=== PATIENT | male | born 1990 | race American Indian/Alaskan Native ===

== ENCOUNTER 2018-06-30 22:19 | Emergency (ER) | payer OTHER ==
--- NOTE | 2018-07-01 00:11 | XRay Report ---
PROCEDURE: LUMBAR SPINE, 2 VIEWS TECHNIQUE: Lumbar spine radiographs, frontal and lateral views. CPT 96658 HISTORY: Back pain COMPARISONS: None . FINDINGS: Alignment: Normal . Vertebral body heights/Disk spaces: Normal . Fracture(s): None . Facets: Normal . Bone mineralization: Normal . IMPRESSION: Normal Examination . This document is electronically signed by Jose Ramon Cotton MD., July 01 2018 12:09:08 AM ET
[2018-07-01 00:56] VITALS: BP 133/73
[2018-07-01 01:18] LABS: Bilirubin,Urine NEG (Negative); Blood,Urine NEG (Negative); Color,Urine Yellow (Yellow); Mucus,Urine FEW /HPF; Protein,Urine <15 mg/dL mg/dL (Negative); WBC,Urine < 1.0 /HPF (0.0-6.0)
--- NOTE | 2018-07-01 01:34 | Emergency Department Report ---
ED General Adult HPI - General Chief complaint: Urogenital-Male Stated complaint: FALL AT WORK/CHECK FOR UTI Time Seen by Provider: 07/01/18 00:40 Source: patient, RN notes reviewed, old records reviewed Mode of arrival: Ambulatory Limitations: No Limitations - History of Present Illness Initial comments: This is a 28-year-old gentleman. The patient is not known to this provider previously. The patient presents to the emergency room with 2 complaints. History of complaint is medical clearance to return to work. He reports a mechanical slip and fall at work a few days ago. He reports that his employer instruct him to "get cleared to come back to work." Apparently, patient's employer does not have Worker's Compensation, or any current arrangement with the health care organization for medical clearance. Patient denies extremity weakness, numbness. He fell onto his lower back. He is not really having significant pain. He denies headache, neck pain, chest pain, abdominal pain, shortness of breath. He has a secondary complaint of "urinary tract infection." He denies dysuria. He denies hesitancy. He denies discharge. He has a sensation of suprapubic fullness. He denies testicular pain. He reports that he had a urinary tract infection a few months ago," this feels similar." He reports these symptoms have been going on for approximately 2 weeks. -: Gradual Location: back Severity scale (0 -10): 5 Quality: aching Consistency: intermittent, now resolved Improves with: other Worsens with: other - Related Data Previous Rx's Medication Instructions Recorded Last Taken Type Sulfamethoxazole/Trimethoprim 1 each PO BID #14 tablet 01/16/18 Unknown Rx [Bactrim DS TAB] Azithromycin [Zithromax TAB] 1,000 mg PO ONCE #2 tablet 04/19/18 Unknown Rx Ketorolac [Toradol] 10 mg PO Q6H PRN #15 tablet 04/19/18 Unknown Rx methOCARBAMOL [Robaxin] 750 mg PO Q8H PRN #21 tablet 04/19/18 Unknown Rx Acetaminophen [Acetaminophen TAB] 650 mg PO Q6HR PRN #20 tablet 07/01/18 Unknown Rx Ibuprofen [Motrin] 600 mg PO Q8H PRN #30 tablet 07/01/18 Unknown Rx Allergies Allergy/AdvReac Type Severity Reaction Status Date / Time No Known Allergies Allergy Verified 04/18/18 21:46 ED Review of Systems ROS: Stated complaint: FALL AT WORK/CHECK FOR UTI Other details as noted in HPI Constitutional: denies: fever Eyes: denies: eye discharge ENT: denies: epistaxis Respiratory: denies: cough Cardiovascular: denies: chest pain Gastrointestinal: denies: nausea, vomiting Genitourinary: denies: urgency, dysuria, hematuria, discharge, testicular pain, testicular mass Musculoskeletal: back pain Skin: denies: lesions Neurological: denies: weakness ED Past Medical Hx - Past Medical History Previous Medical History?: No - Surgical History Past Surgical History?: No - Social History Smoking Status: Never Smoker Substance Use Type: None - Medications Home Medications: Home Medications Medication Instructions Recorded Confirmed Last Taken Type Sulfamethoxazole/Trimethoprim 1 each PO BID #14 tablet 01/16/18 Unknown Rx [Bactrim DS TAB] Azithromycin [Zithromax TAB] 1,000 mg PO ONCE #2 tablet 04/19/18 Unknown Rx Ketorolac [Toradol] 10 mg PO Q6H PRN #15 tablet 04/19/18 Unknown Rx methOCARBAMOL [Robaxin] 750 mg PO Q8H PRN #21 tablet 04/19/18 Unknown Rx Acetaminophen [Acetaminophen TAB] 650 mg PO Q6HR PRN #20 tablet 07/01/18 Unknown Rx Ibuprofen [Motrin] 600 mg PO Q8H PRN #30 tablet 07/01/18 Unknown Rx ED Physical Exam - General Limitations: No Limitations General appearance: alert, in no apparent distress - Head Head exam: Present: atraumatic, normocephalic - Eye Eye exam: Present: normal appearance, EOMI. Absent: nystagmus - ENT ENT exam: Present: normal exam, normal orophraynx, mucous membranes moist, normal external ear exam - Neck Neck exam: Present: normal inspection, full ROM. Absent: tenderness, meningismus - Respiratory Respiratory exam: Present: normal lung sounds bilaterally. Absent: respiratory distress - Cardiovascular Cardiovascular Exam: Present: regular rate, normal rhythm, normal heart sounds. Absent: bradycardia, tachycardia, irregular rhythm, systolic murmur, diastolic murmur, rubs, gallop - GI/Abdominal GI/Abdominal exam: Present: soft. Absent: distended, tenderness, guarding, rebound, rigid - Rectal Rectal exam: Present: deferred - exam: Present: normal inspection, other (chaperoned by nurse Mariya Patel). Absent: testicular tenderness External exam: Present: normal external exam, other (there is no testicular tenderness. There is normal testicular lie bilaterally. There is normal cremasteric reflex bilaterally.) - Extremities Exam Extremities exam: Present: normal inspection, full ROM. Absent: pedal edema, joint swelling - Back Exam Back exam: Present: normal inspection, full ROM. Absent: tenderness, CVA tenderness (R), paraspinal tenderness, vertebral tenderness - Neurological Exam Neurological exam: Present: alert, oriented X3, CN II-XII intact, normal gait, other (Extraocular movements intact. Tongue midline. No facial droop. Facial sensation intact to light touch in the V1, V2, V3 distribution bilaterally. 5 and 5 strength in 4 extremities.. Sensation is intact to light touch in 4 extremities.). Absent: motor sensory deficit - Psychiatric Psychiatric exam: Present: normal affect, normal mood - Skin Skin exam: Present: warm, dry, intact, normal color. Absent: rash ED Course Vital Signs 06/30/18 07/01/18 23:28 00:53 Temperature 98 F 98.4 F Pulse Rate 73 65 Respiratory 16 18 Rate Blood Pressure 138/75 Blood Pressure 133/73 [Left] O2 Sat by Pulse 100 100 Oximetry ED Medical Decision Making - Lab Data Vital Signs 06/30/18 07/01/18 23:28 00:53 Temperature 98 F 98.4 F Pulse Rate 73 65 Respiratory 16 18 Rate Blood Pressure 138/75 Blood Pressure 133/73 [Left] O2 Sat by Pulse 100 100 Oximetry Lab Results 06/30/18 Range/Units Unknown Urine Color Yellow (Yellow) Urine Turbidity Clear (Clear) Urine pH 6.0 (5.0-7.0) Ur Specific [place] 1.017 (1.003-1.030) Urine Protein <15 mg/dl (Negative) mg/dL Urine Glucose (UA) Neg (Negative) mg/dL Urine Ketones Neg (Negative) mg/dL Urine Blood Neg (Negative) Urine Nitrite Neg (Negative) Urine Bilirubin Neg (Negative) Urine Urobilinogen 2.0 (<2.0) mg/dL Ur Leukocyte Esterase Neg (Negative) Urine WBC (Auto) < 1.0 (0.0-6.0) /HPF Urine RBC (Auto) 1.0 (0.0-6.0) /HPF U Epithel Cells (Auto) < 1.0 (0-13.0) /HPF Urine Mucus Few /HPF - Radiology Data Radiology results: report reviewed, image reviewed X-ray of the lumbar spine is negative for acute disease. - Medical Decision Making Differential diagnosis, including but not limited to: Medical clearance, mechanical fall, urinary tract infection, STI Assessment and plan: 28-year-old gentleman with 2 complaints. Complaint #1, medical clearance to return to work. The patient does not appear to have any acute neurologic impairment. He walks with a steady gait. He has no lower back tenderness. He has full range of motion. plain films ordered of the lumbar spine prior to my evaluation, and they appear to be unremarkable. Patient at this point time does not appear to have an immediate medical contrai ndication to returning to work. Complaint #2, lower abdominal discomfort. No lower abdominal tenderness. Normal genital exam. Urinalysis is not consistent with UTI. Culture sent. Did not suspect STI at this point in time based off of the history and physical examination as well as the available laboratory studies. Patient can follow-up with the primary care doctor, cultures were sent. discussed safe sex practices with the patient. Critical care attestation.: If time is entered above; I have spent that time in minutes in the direct care of this critically ill patient, excluding procedure time. ED Disposition Clinical Impression: General medical exam Disposition: DC-01 TO HOME OR SELFCARE Is pt being admited?: No Does the pt Need Aspirin: No Condition: Good Additional Instructions: The patient may return to work related activities without limitation. Patient may take acetaminophen, [id number], 650 mg, every 4-6 hours, alternating with ibuprofen, 600 mg with food, every 6 hours, as needed for pain. Cultures were sent today, and results will be available in the next 3-5 days. Please have a primary care doctor contact the medical records department to obtain culture results. Urine test today was not consistent or suggestive of urinary tract infection. Therefore, please make certain to follow-up with a primary care doctor. Make certain to practice safe sex practices, including barrier/condom protection. Please return to the emergency room right away with new, worse or different symptoms. Referrals: [facility] [Provider Group] - 3-5 Days
== END 2018-07-01 01:45 | disposition home or self-care (01) ==
LOC: ED 22:19
DX: M54.9 Dorsalgia, unspecified (principal)
CPT/HCPCS: 72100; 81001; 87086; 87591; 99283

== ENCOUNTER 2018-09-30 19:22 | Emergency (ER) | payer SELFPAY ==
--- NOTE | 2018-09-30 19:59 | Event Note ---
Date: 09/30/18 28 Y.O with penile discharge, white for the past 1 week, having unprotected sex, high suspicion for sti.
[2018-09-30 20:01] VITALS: BP 127/68
[2018-09-30 20:17] LABS: Bilirubin,Urine NEG (Negative); Blood,Urine NEG (Negative); Color,Urine Yellow (Yellow); Mucus,Urine FEW /HPF; Protein,Urine <15 mg/dL mg/dL (Negative)
[2018-09-30] MEDS ORDERED: ZITHROMAX PO ONE (20:52)
[2018-09-30] MEDS ORDERED: XYLOCAINE 1% MPF 5 mL INFILTRATI ONE (20:52)
[2018-09-30] MEDS ORDERED: ROCEPHIN IM ONE (20:52)
--- NOTE | 2018-09-30 21:03 | Emergency Department Report ---
ED Male HPI - General Chief complaint: Urogenital-Male Stated complaint: GENITAL DISCOMFORT/DISCHARGE Time Seen by Provider: 09/30/18 20:14 Source: patient Mode of arrival: Ambulatory Limitations: No Limitations - History of Present Illness Initial comments: 28 Y.O with penile discharge, white for the past 1 week, having unprotected sex, high suspicion for sti. MD Complaint: penile discharge, dysuria Onset/Timin Location: penis Radiation: none Severity: moderate Severity scale (0 -10): 5 Quality: burning Consistency: intermittent Improves with: none Worsens with: urination discharge - Related Data Sexually active: Yes Previous Rx's Medication Instructions Recorded Last Taken Type Sulfamethoxazole/Trimethoprim 1 each PO BID #14 tablet 01/16/18 Unknown Rx [Bactrim DS TAB] Azithromycin [Zithromax TAB] 1,000 mg PO ONCE #2 tablet 04/19/18 Unknown Rx Ketorolac [Toradol] 10 mg PO Q6H PRN #15 tablet 04/19/18 Unknown Rx methOCARBAMOL [Robaxin] 750 mg PO Q8H PRN #21 tablet 04/19/18 Unknown Rx Acetaminophen [Acetaminophen TAB] 650 mg PO Q6HR PRN #20 tablet 07/01/18 Unknown Rx Ibuprofen [Motrin] 600 mg PO Q8H PRN #30 tablet 07/01/18 Unknown Rx Doxycycline Monohydrate 100 mg PO BID 10 Days #20 capsule 09/30/18 Unknown Rx Allergies Allergy/AdvReac Type Severity Reaction Status Date / Time No Known Allergies Allergy Verified 04/18/18 21:46 ED Review of Systems ROS: Stated complaint: GENITAL DISCOMFORT/DISCHARGE Other details as noted in HPI Constitutional: denies: chills, fever Eyes: denies: eye pain, eye discharge, vision change ENT: denies: ear pain, throat pain Respiratory: denies: cough, shortness of breath, wheezing Cardiovascular: denies: chest pain, palpitations Endocrine: no symptoms reported Gastrointestinal: denies: abdominal pain, nausea, diarrhea Genitourinary: urgency, dysuria, frequency, discharge. denies: hematuria, testicular pain, testicular mass Musculoskeletal: denies: back pain, joint swelling, arthralgia Skin: denies: rash, lesions Neurological: denies: headache, weakness, paresthesias Psychiatric: denies: anxiety, depression Hematological/Lymphatic: as per HPI ED Past Medical Hx - Past Medical History Previous Medical History?: No - Surgical History Past Surgical History?: No - Social History Smoking Status: Current Every Day Smoker Substance Use Type: Marijuana - Medications Home Medications: Home Medications Medication Instructions Recorded Confirmed Last Taken Type Sulfamethoxazole/Trimethoprim 1 each PO BID #14 tablet 01/16/18 Unknown Rx [Bactrim DS TAB] Azithromycin [Zithromax TAB] 1,000 mg PO ONCE #2 tablet 04/19/18 Unknown Rx Ketorolac [Toradol] 10 mg PO Q6H PRN #15 tablet 04/19/18 Unknown Rx methOCARBAMOL [Robaxin] 750 mg PO Q8H PRN #21 tablet 04/19/18 Unknown Rx Acetaminophen [Acetaminophen TAB] 650 mg PO Q6HR PRN #20 tablet 07/01/18 Unknown Rx Ibuprofen [Motrin] 600 mg PO Q8H PRN #30 tablet 07/01/18 Unknown Rx Doxycycline Monohydrate 100 mg PO BID 10 Days #20 capsule 09/30/18 Unknown Rx ED Physical Exam - General Limitations: No Limitations General appearance: alert, in no apparent distress - Head Head exam: Present: atraumatic, normocephalic - Eye Eye exam: Present: normal appearance, PERRL, EOMI Pupils: Present: normal accommodation - ENT ENT exam: Present: mucous membranes moist - Neck Neck exam: Present: normal inspection - Respiratory Respiratory exam: Present: normal lung sounds bilaterally. Absent: respiratory distress, wheezes, stridor, chest wall tenderness - Cardiovascular Cardiovascular Exam: Present: regular rate, normal rhythm. Absent: systolic murmur, diastolic murmur, rubs, gallop - GI/Abdominal GI/Abdominal exam: Present: soft, normal bowel sounds. Absent: distended, tenderness, bruit, hernia - Rectal Rectal exam: Present: deferred - exam: Present: other (exam deferred per patient ) - Extremities Exam Extremities exam: Present: normal inspection - Back Exam Back exam: Present: normal inspection - Neurological Exam Neurological exam: Present: alert, oriented X3, CN II-XII intact, normal gait, reflexes normal. Absent: motor sensory deficit - Psychiatric Psychiatric exam: Present: normal affect, normal mood - Skin Skin exam: Present: warm, dry, intact, normal color. Absent: rash ED Course Vital Signs 09/30/18 19:59 Temperature 98.7 F Pulse Rate 78 Respiratory 18 Rate Blood Pressure 127/68 O2 Sat by Pulse 99 Oximetry ED Medical Decision Making - Lab Data Labs 09/30/18 19:50 Urine Color Yellow Urine Turbidity Clear Urine pH 7.0 Ur Specific [place] 1.018 Urine Protein <15 mg/dl Urine Glucose (UA) Neg Urine Ketones Neg Urine Blood Neg Urine Nitrite Neg Urine Bilirubin Neg Urine Urobilinogen 2.0 Ur Leukocyte Esterase Tr Urine WBC (Auto) 8.0 H Urine RBC (Auto) 1.0 Urine Mucus Few - Medical Decision Making this is a STD pt tx'd for same will follow up with health department for HIV and HSV screening, pt verbalized agreement and understanding of same. Critical care attestation.: If time is entered above; I have spent that time in minutes in the direct care of this critically ill patient, excluding procedure time. ED Disposition Clinical Impression: STI (sexually transmitted infection) Disposition: DC-01 TO HOME OR SELFCARE Is pt being admited?: No Does the pt Need Aspirin: No Condition: Stable Instructions: Sexually Transmitted Diseases (ED) Additional Instructions: follow up with health department for HIV and HSV screening Prescriptions: Doxycycline Monohydrate 100 mg PO BID 10 Days #20 capsule Referrals: SUJATA ROSSI MD [Primary Care Provider] - 3-5 Days Forms: Work/School Release Form(ED) Time of Disposition: 21:04
== END 2018-09-30 21:36 | disposition home or self-care (01) ==
LOC: ED 19:22
DX: A64 Unspecified sexually transmitted disease (principal); F17.200 Nicotine dependence, unspecified, uncomplicated; F12.90 Cannabis use, unspecified, uncomplicated; Z79.899 Other long term (current) drug therapy
CPT/HCPCS: 81001; 87591; 96372; 99283; J0696

== ENCOUNTER 2020-06-02 08:54 | Emergency (ER) | payer SELFPAY ==
[2020-06-02] MEDS ORDERED: ONDANSETRON 4 MG ODT TAB PO ONE (10:03)
--- NOTE | 2020-06-02 10:06 | Emergency Department Report ---
HPI - General Chief Complaint: Nausea/Vomiting/Diarrhea Time Seen by Provider: 06/02/20 09:58 - HPI HPI: This is a 30-year-old -[place] male who presents to the emergency department with complaint of nausea, vomiting, diarrhea and abdominal cramping that has been going on over the past 3 weeks. The patient does not have diarrhea every day but says that when he does have it "it is bad." Patient only had one episode of vomiting last night but has been having the nausea over the past 3 weeks. Currently, at the time of my examination, the patient complains of some mild nausea and he has been having an associated mild generalized headache. He denies any visual change, slurred speech, numbness or paresthesias, weakness, fever. No recent travel or sick contacts at home. He has tried some ibuprofen and Pepto-Bismol on different days with some transient relief. He does not have a primary care physician. He denies any past medical history. No known aggravating or alleviating factors. ED Past Medical Hx - Past Medical History Previous Medical History?: No - Surgical History Past Surgical History?: No - Social History Smoking Status: Never Smoker Substance Use Type: None - Medications Home Medications: Home Medications Medication Instructions Recorded Confirmed Last Taken Type Sulfamethoxazole/Trimethoprim 1 each PO BID #14 tablet 01/16/18 Unknown Rx [Bactrim DS TAB] Azithromycin [Zithromax TAB] 1,000 mg PO ONCE #2 tablet 04/19/18 Unknown Rx Ketorolac [Toradol] 10 mg PO Q6H PRN #15 tablet 04/19/18 Unknown Rx methOCARBAMOL [Robaxin] 750 mg PO Q8H PRN #21 tablet 04/19/18 Unknown Rx Acetaminophen [Acetaminophen TAB] 650 mg PO Q6HR PRN #20 tablet 07/01/18 Unknown Rx Ibuprofen [Motrin] 600 mg PO Q8H PRN #30 tablet 07/01/18 Unknown Rx Doxycycline Monohydrate 100 mg PO BID 10 Days #20 capsule 09/30/18 Unknown Rx Ondansetron [Zofran Odt] 4 mg PO Q8HR PRN #14 tab.rapdis 06/02/20 Unknown Rx ED Review of Systems ROS: Stated complaint: NAUSEA/VOMITING Other details as noted in HPI Comment: All other systems reviewed and negative Constitutional: denies: chills, fever Eyes: denies: eye pain, vision change ENT: denies: ear pain, throat pain Respiratory: denies: cough, shortness of breath Cardiovascular: denies: chest pain, palpitations Gastrointestinal: abdominal pain, nausea, vomiting, diarrhea Genitourinary: dysuria. denies: discharge Musculoskeletal: denies: back pain, arthralgia Skin: denies: rash, lesions Neurological: denies: headache, weakness Physical Exam - Physical Exam Vital Signs: Vital Signs 06/02/20 09:02 Temperature 98.3 F Pulse Rate 55 L Respiratory 16 Rate Blood Pressure 132/84 O2 Sat by Pulse 100 Oximetry Physical Exam: GENERAL: The patient is well-developed well-nourished. HENT: Normocephalic. Atraumatic. Patient has moist mucous membranes. EYES: Extraocular motions are intact. NECK: Supple. Trachea is midline. CHEST/LUNGS: Clear to auscultation. There is no respiratory distress noted. HEART/CARDIOVASCULAR: Regular. There is no tachycardia. There is no murmur. ABDOMEN: Abdomen is soft, nontender. Patient has normal bowel sounds. SKIN: Skin is warm and dry. NEURO: The patient is awake, alert, and oriented. The patient is cooperative. The patient has no focal neurologic deficits. Normal speech. Cranial nerves II through XII grossly intact. MUSCULOSKELETAL: There is no tenderness or deformity. There is no limitation range of motion. ED Course Vital Signs 06/02/20 09:02 Temperature 98.3 F Pulse Rate 55 L Respiratory 16 Rate Blood Pressure 132/84 O2 Sat by Pulse 100 Oximetry ED Medical Decision Making - Lab Data Result diagrams: 06/02/20 10:30 06/02/20 10:30 Lab Results 06/02/20 06/02/20 06/02/20 Range/Units 10:30 10:30 Unknown WBC 4.4 L (4.5-11.0) K/mm3 RBC 5.42 H (3.65-5.03) M/mm3 Hgb 16.1 H (11.8-15.2) gm/dl Hct 47.1 H (35.5-45.6) % MCV 87 (84-94) fl MCH 30 (28-32) pg MCHC 34 (32-34) % RDW 13.5 (13.2-15.2) % Plt Count 141 (140-440) K/mm3 Lymph % (Auto) 30.4 (13.4-35.0) % Rock % (Auto) 9.6 H (0.0-7.3) % Eos % (Auto) 1.8 (0.0-4.3) % Baso % (Auto) 0.7 (0.0-1.8) % Lymph # (Auto) 1.3 (1.2-5.4) K/mm3 [place] # (Auto) 0.4 (0.0-0.8) K/mm3 Eos # (Auto) 0.1 (0.0-0.4) K/mm3 Baso # (Auto) 0.0 (0.0-0.1) K/mm3 Seg Neutrophils % 57.5 (40.0-70.0) % Seg Neutrophils # 2.5 (1.8-7.7) K/mm3 Sodium 141 (137-145) mmol/L Potassium 4.5 (3.6-5.0) mmol/L Chloride 101.4 (98-107) mmol/L Carbon Dioxide 30 (22-30) mmol/L Anion Gap 14 mmol/L BUN 9 (9-20) mg/dL Creatinine 0.9 (0.8-1.3) mg/dL Estimated GFR > 60 ml/min BUN/Creatinine Ratio 10 % Glucose 92 (75-100) mg/dL Calcium 9.7 (8.4-10.2) mg/dL Total Bilirubin 1.10 (0.1-1.2) mg/dL AST 15 (5-40) units/L ALT 10 (7-56) units/L Alkaline Phosphatase 74 (35-129) units/L Total Protein 7.5 (6.3-8.2) g/dL Albumin 4.8 (3.9-5) g/dL Albumin/Globulin Ratio 1.8 % Urine Color Yellow (Yellow) Urine Turbidity Clear (Clear) Urine pH 6.0 (5.0-7.0) Ur Specific [place] 1.014 (1.003-1.030) Urine Protein <15 mg/dl (Negative) mg/dL Urine Glucose (UA) Neg (Negative) mg/dL Urine Ketones Neg (Negative) mg/dL Urine Blood Neg (Negative) Urine Nitrite Neg (Negative) Urine Bilirubin Neg (Negative) Urine Urobilinogen < 2.0 (<2.0) mg/dL Ur Leukocyte Esterase Sm (Negative) Urine WBC (Auto) 13.0 H (0.0-6.0) /HPF Urine RBC (Auto) 1.0 (0.0-6.0) /HPF - Medical Decision Making This patient presents to the emergency department with a complaint of a 3-week history of some nausea, vomiting and diarrhea. At the time of my examination the patient just says that he has some nausea. Labs have been unremarkable including CBC, metabolic panel and urinalysis. His vital signs have been reassuring throughout his ED course including being afebrile. The patient is able to pass an oral challenge after he was given a Zofran ODT. He appears safe for discharge home at this time. He has been given a prescription for Zofran ODT and outpatient referrals for primary care. We discussed increasing his oral rehydration. He will return to the emergency department with any worsening of his symptoms or with any acute distress. Critical Care Time: No Critical care attestation.: If time is entered above; I have spent that time in minutes in the direct care of this critically ill patient, excluding procedure time. ED Disposition Clinical Impression: Abdominal cramping Nausea & vomiting Qualifiers: Vomiting type: unspecified Vomiting Intractability: unspecified Qualified Code(s): R11.2 - Nausea with vomiting, unspecified Diarrhea Qualifiers: Diarrhea type: unspecified type Qualified Code(s): R19.7 - Diarrhea, unspecified Disposition: DC-01 TO HOME OR SELFCARE Is pt being admited?: No Condition: Stable Instructions: Diarrhea, Adult, Nausea and Vomiting, Adult Additional Instructions: Please increase your oral rehydration. Please follow-up with a primary care physician in the next few days. I have given you a referral for a local primary care physician and a primary care clinic. Return to the emergency department with any worsening of your symptoms, new or concerning symptoms not addressed during this current emergency department visit, or with any acute distress. Prescriptions: Ondansetron [Zofran Odt] 4 mg PO Q8HR PRN #14 tab.rapdis PRN Reason: Nausea Referrals: NEIDA MENDOZA MD [Primary Care Provider] - 3-5 Days [facility] [Provider Group] - 3-5 Days SARA JOHNSON MD [Staff Physician] - 3-5 Days Time of Disposition: 11:57
[2020-06-02 11:15] LABS: Basophils % (Auto) 0.7 % (0.0-1.8); Eosinophils # (Auto) 0.1 K/mm3 (0.0-0.4); Eosinophils % (Auto) 1.8 % (0.0-4.3); Hematocrit 47.1 % (35.5-45.6); Hemoglobin 16.1 gm/dl (11.8-15.2); Lymphocytes # (Auto) 1.3 K/mm3 (1.2-5.4); Lymphocytes % (Auto) 30.4 % (13.4-35.0); Mean Corpuscular HGB Conc 34 % (32-34); Mean Corpuscular Volume 87 fl (84-94); Monocytes # (Auto) 0.4 K/mm3 (0.0-0.8); Monocytes % (Auto) 9.6 % (0.0-7.3); Red Blood Count 5.42 M/mm3 (3.65-5.03); Red Cell Distribution Width 13.5 % (13.2-15.2)
[2020-06-02 11:22] LABS: Platelet Count 141 K/mm3 (140-440)
[2020-06-02 11:27] LABS: Bilirubin,Urine NEG (Negative); Blood,Urine NEG (Negative); Color,Urine Yellow (Yellow); Protein,Urine <15 mg/dL mg/dL (Negative); Urobilinogen,Urine < 2.0 mg/dL (<2.0)
[2020-06-02 11:38] LABS: Alanine Aminotransferase 10 units/L (7-56); Albumin 4.8 g/dL (3.9-5); BUN/Creatinine Ratio 10; Blood Urea Nitrogen 9 mg/dL (9-20); Calcium 9.7 mg/dL (8.4-10.2); Hemolysis Index 8
[2020-06-02 12:12] VITALS: BP 123/57
== END 2020-06-02 12:14 | disposition home or self-care (01) ==
LOC: ED 08:54
DX: R11.2 Nausea with vomiting, unspecified (principal); R19.7 Diarrhea, unspecified; R10.9 Unspecified abdominal pain; Z79.899 Other long term (current) drug therapy
CPT/HCPCS: 36415; 80053; 81001; 85025; 87086; Q0162

== ENCOUNTER 2021-10-11 16:16 | Emergency (ER) | payer SELFPAY ==
[2021-10-11 17:33] VITALS: BP 139/93
[2021-10-11 18:05] LABS: Basophils % (Auto) 0.9 % (0.0-1.8); Eosinophils # (Auto) 0.1 K/mm3 (0.0-0.4); Eosinophils % (Auto) 1.4 % (0.0-4.3); Hematocrit 43.2 % (35.5-45.6); Hemoglobin 14.8 gm/dl (11.8-15.2); Lymphocytes # (Auto) 1.7 K/mm3 (1.2-5.4); Lymphocytes % (Auto) 33.4 % (13.4-35.0); Mean Corpuscular HGB Conc 34 % (32-34); Mean Corpuscular Volume 86 fl (84-94); Monocytes # (Auto) 0.6 K/mm3 (0.0-0.8); Monocytes % (Auto) 12.5 % (0.0-7.3); Platelet Count 155 K/mm3 (140-440); Red Blood Count 5.03 M/mm3 (3.65-5.03); Red Cell Distribution Width 14.1 % (13.2-15.2)
[2021-10-11 18:07] LABS: Mucus,Urine FEW /HPF
[2021-10-11 18:11] LABS: Color,Urine Yellow (Yellow)
[2021-10-11 18:12] LABS: Bilirubin,Urine Negative (Negative); Blood,Urine Negative (Negative); PH,Urine 5.5 (5.0-7.0); Urobilinogen,Urine < 2.0 mg/dL (<2.0)
[2021-10-11 18:25] LABS: Alanine Aminotransferase 9 units/L (7-56); Albumin 4.9 g/dL (3.9-5); BUN/Creatinine Ratio 11; Blood Urea Nitrogen 11 mg/dL (9-20); Calcium 9.3 mg/dL (8.4-10.2); Hemolysis Index 9
== END 2021-10-11 20:00 | disposition left against medical advice (07) ==
LOC: ED 16:16
DX: R10.9 Unspecified abdominal pain (principal); Z53.21 Procedure and treatment not carried out due to patient leaving prior to being seen by health care provider
CPT/HCPCS: 36415; 80053; 81001; 83690; 85025